=== PATIENT | male | born 1970 | race Caucasian/White ===

== ENCOUNTER 2018-02-01 05:36 | Inpatient (IN) | payer OTHER ==
[~2018-02-01] VITALS: Ht 167.6 cm; Wt 70.3 kg
[2018-02-01] VITALS (10 sets, daily range): BP systolic 93–128; BP diastolic 57–77
[~2018-02-01 05:36] MED LIST: ASPI-1169 PO; ATOR80TA PO; CLOP75TA15 PO; LISI-607 PO; METO25TA6 PO
--- NOTE | 2018-02-01 05:45 | NUR ---
PT BIB [facility]. COMP OF "MY CHEST PAIN WOKE ME UP, 07/26 AND RADIATES TO MY LEFT ARM". PT AOX4. AMBULATORY W.ASSISTANCE. NO SOB NOTED AT THIS TIME. NO ACUTE DISTRESS AT THIS TIME. AWAITING MD SEGOVIA
[2018-02-01] MEDS ORDERED: MORPHINE SULFATE INJ 4 MG/ML DISP.SYRIN ONE (05:50)
[2018-02-01] MEDS ORDERED: ONDANSETRON HCL/PF 4 MG/2 ML VIAL ONE (05:50)
[2018-02-01] MEDS ORDERED: NITROGLYCERIN PACKET 1 GM PACKET ONE (05:51)
[2018-02-01] MEDS ORDERED: MORPHINE SULFATE INJ 2 MG/ML DISP.SYRIN IV ONE (06:00)
[2018-02-01] MEDS ORDERED: ONDANSETRON HCL/PF 4 MG/2 ML VIAL IVP ONE (06:00)
[2018-02-01] MEDS ORDERED: NITROGLYCERIN PACKET 1 GM PACKET TD ONE (06:00)
--- NOTE | 2018-02-01 06:04 | NUR ---
PT IS GOING TO TELE 323-2
[2018-02-01 06:05] LABS: BASOPHILS # (AUTO) 0.1 /CMM (0.0-0.2); BASOPHILS % (AUTO) 1.1 % (0.0-2.0); EOSINOPHILS % (AUTO) 1.2 % (0.0-6.0); HEMATOCRIT 42 % (39-51); HEMOGLOBIN 14.1 g/dL (13.5-17.5); LYMPHOCYTES # (AUTO) 2.2 /CMM (0.8-4.8); LYMPHOCYTES % (AUTO) 30.3 % (20.0-44.0); MEAN CORPUSCULAR HGB CONC 34 g/dl (31.0-36.0); MEAN CORPUSCULAR VOLUME 84 fL (80-96); MONOCYTES # (AUTO) 0.7 /CMM (0.1-1.30); MONOCYTES % (AUTO) 9.2 % (2.0-12.0); NEUTROPHILS # (AUTO) 4.3 /CMM (1.8-8.9); NEUTROPHILS % (AUTO) 58.2 % (43.0-81.0); PLATELET COUNT (AUTO) 242 /CMM (150-450); RED BLOOD CELL COUNT(AUTO) 5.01 MIL/uL (4.5-6.0); WHITE BLOOD COUNT (AUTO) 7.4 K/uL (4.3-11.0)
--- NOTE | 2018-02-01 06:10 | NUR ---
321-2 [facility]
--- NOTE | 2018-02-01 06:11 | NUR ---
REPORT GIVEN TO AIXA ALVAREZ.
[2018-02-01 06:15] LABS: CALCIUM, SERUM 8.7 mg/dL (8.5-10.1); CARBON DIOXIDE 23 mmol/L (21-32); CHLORIDE 102 mmol/L (98-107); CREATININE 0.8 mg/dL (0.6-1.3); GLUCOSE 121 mg/dL (74-106); POTASSIUM 3.5 mmol/L (3.5-5.1); SODIUM SERUM 138 mmol/L (136-145); UREA NITROGEN, BLOOD 16 mg/dL (7-18)
--- NOTE | 2018-02-01 06:47 | NUR ---
Patient is resting comfortably in bed with eyes closed. Easily aroused. VSS
[2018-02-01] MEDS ORDERED: MORPHINE SULFATE INJ 2 MG/ML DISP.SYRIN IV PRN (07:00)
[2018-02-01] MEDS ORDERED: MAG HYDROX/AL HYDROX/SIMETH 30 ML UDC PO PRN (07:00)
[2018-02-01] MEDS ORDERED: NITROGLYCERIN 0.4 MG/TAB BOTTLE SL PRN (07:00)
[2018-02-01] MEDS ORDERED: DOCUSATE SODIUM 100 MG CAPSULE PO PRN (07:00)
[2018-02-01] MEDS ORDERED: ONDANSETRON HCL/PF 4 MG/2 ML VIAL IVP PRN (07:00)
[2018-02-01] MEDS ORDERED: ACETAMINOPHEN 325 MG TABLET PO PRN (07:00)
[2018-02-01] MEDS ORDERED: MORPHINE SULFATE INJ 4 MG/ML DISP.SYRIN IV PRN (07:30)
--- NOTE | 2018-02-01 07:50 | NUR ---
EXPLOSIVE TECHNICIAN ADMITTING NOTES: ADMITTED A 48 YEAR OLD MALE PATIENT TO UNIT AT 0700 VIA GURNEY, ALERT ORIENTED X 4. WITH CHIEF COMPLAINTS OF CHEST PAIN AND SHORTNESS OF BREATH SINCE 0300. WITH HISTORY OF HYPERTENSION, CORONARY ARTERY DISEASE S/P 7 STENTS. PATIENT IS CALM NO SIGNS OF RESTLESSNESS OR DISCOMFORT NOTED AT THIS TIME. ON TELE MONITORING, WITH CURRENT READING SR 79, IV ACCESS ON HIS LEFT AC G#18 INTACT AND PATENT. INITIAL PHYSICAL ASSESSMENT OBTAINED. NOTED MULTIPLE SMALL SCAB ON RIGHT LATERAL LOWER LEG. NO ABDOMINAL DISTENTION, LAST BM ON 01/31/18 MORNING. CLEAR NO WHEEZING OR RALES UPON AUSCULTATION. WILL CONTINUE TO MONITOR ACCORDINGLY.
[2018-02-01] MEDS: ENOXAPARIN SODIUM 40 MG/0.4 ML DISP.SYRIN SQ SCH (08:40)
[2018-02-01] MEDS ORDERED: CLOPIDOGREL BISULFATE 75 MG TABLET PO SCH (09:00)
[2018-02-01] MEDS ORDERED: LISINOPRIL (5MG) 5 MG TABLET PO SCH (09:00)
[2018-02-01] MEDS ORDERED: ASPIRIN EC 325 MG TABLET.DR PO SCH (09:00)
[2018-02-01] MEDS ORDERED: ATORVASTATIN CALCIUM PO SCH (09:00)
[2018-02-01] MEDS ORDERED: ASPIRIN 81 MG TAB.CHEW PO SCH ×2 (09:00)
[2018-02-01] MEDS: ASPIRIN 81 MG TAB.CHEW PO SCH (09:00)
--- NOTE | 2018-02-01 09:00 | NUR ---
DECK HAND/MED RECON UIPDATED MED RECON OBTAINED FROM THE PATIENT. DR. MANZANARES AWARE WITH NEW ORDER. PRIMARY NURSE AWARE.
[2018-02-01] MEDS: LISINOPRIL (5MG) 5 MG TABLET PO SCH (09:33)
[2018-02-01] MEDS: ATORVASTATIN 40 MG TABLET PO SCH (09:33)
[2018-02-01] MEDS: CLOPIDOGREL BISULFATE 75 MG TABLET PO SCH (09:34)
[2018-02-01] MEDS: METOPROLOL TARTRATE 25 MG TABLET PO SCH ×2 (09:34→17:00)
--- NOTE | 2018-02-01 09:40 | NUR ---
RN NOTES ASPIRIN 81 MG NOT GIVEN AT 0900, PREVIOUS ORDER OF ASPIRIN 325 MG GIVEN AT 0839. PATIENT IS RESTING COMFORTABLY. OBTAINED CONSENT FOR CT OF HEART WITH 3D IMAGE. AWAITING FOR ETIQUETTE COACH.
[2018-02-01 10:20] LABS: CHOLESTEROL 261 mg/dL (<200); HDL CHOLESTEROL 45 mg/dL (40-60); LDL 140 mg/dL (0-99); TRIGLYCERIDES 448 mg/dL (30-150)
[2018-02-01] MEDS ORDERED: METOPROLOL TARTRATE INJ 5 MG/5 ML AMPUL ONE ×2 (13:20→13:29)
[2018-02-01] MEDS ORDERED: IV NS 0.9% 250 ML IV ONE (13:29)
[2018-02-01] MEDS ORDERED: IOHEXOL-350 100 ML VIAL IV ONE (13:29)
[2018-02-01] MEDS ORDERED: CT SWABBABLE VALVE TRANS SET 1 EA INFUS.SET MC ONE (13:29)
--- NOTE | 2018-02-01 14:00 | NUR ---
S/P CTA Pt tolerated procedure well, denies CP, SOB, n/v. Administered Metoprolol 5 mg IVP x1 and NTG SL tab per protocol. Pt educated throughout procedure and verbalized understanding. Pt returned to room in stable condition, NSR 70's, on RA with BP 113/71. Primary RN updated.
--- NOTE | 2018-02-01 18:52 | NUR ---
MS RN CLOSING NOTES PATIENT IN BED AWAKE AT THIS TIME. HOB KEPT ELEVATED. A/O X4. KEPT COMFORTABLE. ALL DUE NURSING CARE DONE AND MAINTAINED. ALL SAFETY MEASURES OBSERVED AT ALL TIMES, BED IN LOW LOCKED POSITION WITH SIDE RAILS UP x2. CALL LIGHT WITHIN EASY REACH. NO COMPLAINTS OF PAIN OR DISCOMFORT NOTED. WILL ENDORSED TO FILE SYSTEM INSTALLER NURSE FOR CONTINUOUS CARE AND MANAGEMENT.
--- NOTE | 2018-02-01 19:00 | NUR ---
RN OPENING NOTES PT AWAKE, ALERT AND RESTING IN BED. NO COMPLAINTS OF PAIN, SOB OR DISTRESS AT THIS TIME. PT HAS A LEFT AC #18 INTACT AND PATENT. SAFETY PRECAUTIONS IN PLACE, BED IN LOWEST LOCKED POSITION, X2 SIDE RAILS UP AND CALL LIGHT WITHIN REACH. WILL CONTINUE TO MONITOR.
[2018-02-01] MEDS ORDERED: SIMVASTATIN 20 MG TABLET PO SCH (22:00)
--- NOTE | 2018-02-02 06:59 | NUR ---
RN CLOSING NOTES PT RESTING IN BED. NO COMPLAINTS OF PAIN, SOB OR DISTRESS OVERNIGHT. PT HAS A LEFT AC #18 INTACT AND PATENT. SAFETY PRECAUTIONS IN PLACE, BED IN LOWEST LOCKED POSITION, X2 SIDE RAILS UP AND CALL LIGHT WITHIN REACH. WILL ENDORSE TO DAY SHIFT NURSE FOR CONTINUITY OF CARE.
[2018-02-02 07:16] LABS: BASOPHILS % (AUTO) 0.5 % (0.0-2.0); EOSINOPHILS % (AUTO) 1.7 % (0.0-6.0); HEMATOCRIT 42 % (39-51); HEMOGLOBIN 14.1 g/dL (13.5-17.5); LYMPHOCYTES # (AUTO) 2.1 /CMM (0.8-4.8); LYMPHOCYTES % (AUTO) 30.3 % (20.0-44.0); MEAN CORPUSCULAR HGB CONC 33 g/dl (31.0-36.0); MEAN CORPUSCULAR VOLUME 86 fL (80-96); MONOCYTES # (AUTO) 0.8 /CMM (0.1-1.30); MONOCYTES % (AUTO) 11.2 % (2.0-12.0); NEUTROPHILS # (AUTO) 3.8 /CMM (1.8-8.9); NEUTROPHILS % (AUTO) 56.3 % (43.0-81.0); PLATELET COUNT (AUTO) 218 /CMM (150-450); RED BLOOD CELL COUNT(AUTO) 4.94 MIL/uL (4.5-6.0); WHITE BLOOD COUNT (AUTO) 6.8 K/uL (4.3-11.0)
[2018-02-02 07:26] LABS: CALCIUM, SERUM 8.4 mg/dL (8.5-10.1); CREATININE 0.8 mg/dL (0.6-1.3); MAGNESIUM 2.1 mg/dL (1.8-2.4); PHOSPHORUS 3.6 mg/dL (2.5-4.9); POTASSIUM 4.2 mmol/L (3.5-5.1)
[2018-02-02 08:00] VITALS: BP 99/63
[2018-02-02] MEDS: LISINOPRIL (5MG) 5 MG TABLET PO SCH (08:38)
[2018-02-02] MEDS: ATORVASTATIN 40 MG TABLET PO SCH (08:38)
[2018-02-02] MEDS: CLOPIDOGREL BISULFATE 75 MG TABLET PO SCH (08:38)
[2018-02-02] MEDS: ASPIRIN 81 MG TAB.CHEW PO SCH (08:38)
[2018-02-02 08:39] VITALS: BP 99/63
[2018-02-02] MEDS: METOPROLOL TARTRATE 25 MG TABLET PO SCH (08:39)
[2018-02-02] MEDS: ENOXAPARIN SODIUM 40 MG/0.4 ML DISP.SYRIN SQ SCH (08:42)
--- NOTE | 2018-02-02 16:31 | NUR ---
MS EN DISCHARGE NOTES DISCHARGED PATIENT IN STABLE CONDITION. IN NO APPARENT DISTRESS. EXITCARE WAS SIGNED AND PROVIDED TO THE PATIENT. IV LINE WAS REMOVED. ID BAND WAS REMOVED. ALL NEEDS WERE MET. PICTURES WERE TAKEN AND PLACED IN CHART. PATIENT WAS ESCORTED OUT OF THE FACILITY BY KIM CABRERA.
== END 2018-02-02 16:25 | disposition home or self-care (01) | DRG 203 ==
LOC: ER 05:37 → TELE 06:53 → MED 08:41
PROVIDERS: ADMIT Student in an Organized Health Care Education/Training Program; ATTEND Nurse Practitioner Acute Care
DX: M94.0 Chondrocostal junction syndrome [Tietze] (principal); E78.5 Hyperlipidemia, unspecified; I25.10 Atherosclerotic heart disease of native coronary artery without angina pectoris; I10 Essential (primary) hypertension; F17.210 Nicotine dependence, cigarettes, uncomplicated; I25.118 Atherosclerotic heart disease of native coronary artery with other forms of angina pectoris; Z95.5 Presence of coronary angioplasty implant and graft; Z71.6 Tobacco abuse counseling
CPT/HCPCS: 36415; 71045-TC; 75574; 80048-TC; 80061-TC; 83735-TC; 84100-TC; 84443-TC; 84484-TC; 85025-TC; 87081-TC; 93307-TC; A4606; G0378; J1650; J2270; J2405; J3490; J7050; Q9967; Z7610